=== PATIENT | male | born 1985 | race Caucasian/White ===

== ENCOUNTER → 2017-04-26 | Outpatient (CLI) | payer OTHER ==
[~2017-04-26] MED LIST: DOXY100T2 PO; ONDA8TAB13 PO; TRAM50TA2 PO
--- NOTE | 2017-04-26 17:58 | Diagnostic Imaging Report ---
INDICATION: Tailbone pain. FINDINGS: AP and lateral views of the sacrum and coccyx do not show any evidence of displaced fracture. Sacral ala appears to be intact. SI joints appear normal. IMPRESSION: Negative sacrum and coccyx. Dictated by: Dictated on workstation # [id number]
== END ==
LOC: RAD 16:51
PROVIDERS: ATTEND Family Medicine
DX: M53.3 Sacrococcygeal disorders, not elsewhere classified (principal)
CPT/HCPCS: 72220

== ENCOUNTER 2021-02-28 22:42 | Emergency (ER) | payer OTHER ==
[~2021-02-28] VITALS: Ht 66 cm; Wt 68.0 kg
[~2021-02-28 22:42] MED LIST changes: -TRAM50TA2 PO; +TRM50T PO
--- NOTE | 2021-02-28 23:40 | ED Lower Extremity ---
General Chief Complaint: Lower Extremity Stated Complaint: ROLLED ANKLE/SWELLING/PAIN Nursing Triage Note: Pt arrives via POV from home with c/o right ankle pain; states he was stepping off of a small ledge et he rolled his ankle. Swelling noted but no obvious deformity. Pt has been using ice since the incident. (MANUELCHELLE) History of Present Illness Date Seen by Provider: Feb 28, 2021 Time Seen by Provider: 23:28 Initial Comments Patient is a 35 year old male who presents to the ER with complaints of an ankle injury. Patient states he stepped off of a curb and rolled his ankle. [place] a popping sensation as it rolled. Patient states it was an inversion injury. This occurred around 1999. Patient didn't fall and was going to attempt to tough it out. When he got home and took his work boot off his ankle was swollen and continued to swell. Around 2229 patient took 600 mg of ibuprofen. Has been icing and elevating the ankle. Patient states he has had no numbness, tingling, or burning. Describes the pain as a deep achy pain. Rates it a 4/10 at rest but can get as high as 6/10 with movement. The pain is localized to the ankle and does not radiate. There is swelling around the lateral malleolus, approximately half a baseball in size. Sensation and capillary refill are intact distal to the injury. Patient states he can put a little weight on his foot, but did hop on one leg to the ER and to his ER bed. Onset: this evening Severity: mild Pain/Injury Location: right ankle Method of Injury: twisted Modifying Factors: Improves With Movement (CHELLE JACKSON) Allergies and Home Medications Allergies Coded Allergies: No Known Drug Allergies (Unverified , 03/27/16) Patient Home Medication List Home Medication List Reviewed: Yes (CHELLE JACKSON) Doxycycline Hyclate (Doxycycline Hyclate) 100 Mg Tablet, 100 MG PO BID Prescribed by: MARIPOSA BRADSHAW on 03/28/1638 Ondansetron (Ondansetron Odt) 8 Mg Tab.rapdis, 8 MG PO Q6H PRN for NAUSEA Prescribed by: MARIPOSA BRADSHAW on 03/28/1638 Tramadol HCl (Tramadol HCl) 50 Mg Tablet, 50-100 MG PO Q4H PRN for PAIN Prescribed by: MARIPOSA BRADSHAW on 03/28/16 0046 Review of Systems Constitutional: no symptoms reported EENTM: no symptoms reported Respiratory: no symptoms reported Cardiovascular: no symptoms reported Gastrointestinal: no symptoms reported Genitourinary: no symptoms reported Musculoskeletal: joint pain (Right ankle), joint swelling (Right ankle) Skin: no symptoms reported Psychiatric/Neurological: No Symptoms Reported (CHELLE JACKSON) Past Bevsdgy-Aeblgq-Zmrkmd Hx Patient Social History Tobacco Use?: No Use of E-Cig and/or Vaping dev: No Substance use?: No Alcohol Use?: No Pt feels they are or have been: No (CHELLE JACKSON) Immunizations Up To Date Tetanus Booster (TDap): More than 5yrs PED Vaccines UTD: No COVID19 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[employer] (CHELLE JACKSON) Seasonal Allergies Seasonal Allergies: No (CHELLE JACKSON) Past Medical History Currently Using CPAP: No Currently Using BIPAP: No Reproductive Disorders: No Sexually Transmitted Disease: No HIV/AIDS: No Adverse Reaction/Blood Tranf: No (CHELLE JACKSON) Family Medical History No Pertinent Family Hx (CHELLE JACKSON) Physical Exam Vital Signs Vital Signs - First Documented 02/28/21 23:20 Temp 36.8 Pulse 68 Resp 18 B/P (MAP) 136/87 (103) Pulse Ox 98 O2 Delivery Room Air (TAYLOR BALDERRAMA MD) Vital Signs Capillary Refill : Less Than 3 Seconds (CHELLE JACKSON) Height, Weight, BMI Height: 5'6" Weight: 155lbs. oz. 70.050775vf; 156.00 BMI Method:Stated General Appearance: WD/WN, no apparent distress Neck: supple, normal inspection Cardiovascular: normal peripheral pulses, no murmur Respiratory: chest non-tender, no respiratory distress, no accessory muscle use Gastrointestinal: non tender, soft Ankles: left ankle non-tender, left ankle normal inspection; right ankle limited range of motion, right ankle pain, right ankle soft tissue tenderness, right ankle swelling Neurologic/Tendon: normal sensation Neurologic/Psychiatric: alert, normal mood/affect, oriented x 3 Skin: normal color, warm/dry Lymphatic: no adenopathy (CHELLE JACKSON) Progress/Results/Core Measures Results/Orders My Orders Orders - TAYLOR BALDERRAMA MD Ankle, Right, 3 Views (02/28/21 23:33) (TAYLOR BALDERRAMA MD) Vital Signs/I&O 02/28/21 23:20 Temp 36.8 Pulse 68 Resp 18 B/P (MAP) 136/87 (103) Pulse Ox 98 O2 Delivery Room Air (TAYLOR BALDERRAMA MD) Blood Pressure Mean: 103 Progress Progress Note : Progress Note X-rays negative for fracture. Discussed results with patient. Discussed RICE and NSAIDs in the coming days for ankle pain and swelling. They understand. (CHELLE JACKSON) Departure Impression Primary Impression: Sprain and strain of ankle Disposition: HOME, SELF-CARE Condition: Stable Departure-Patient Inst. Decision time for Depature: 23:59 (CHELLE JACKSON) Referrals: FLORIDA HYTAT DO (PCP/Family) Primary Care Physician Patient Instructions: Ankle Sprain (DC) Add. Discharge Instructions: Continue to apply ice and compression to the affected ankle. Rest and elevate the ankle when possible Take 600 mg Ibuprofen, with food, every six to eight hours as needed for pain Continue applying RANDI wrap to ankle for the next 7 days. Follow up with your primary care physician if the pain or swelling do not go down in the next 10-14 days. All discharge instructions reviewed with patient and/or family. Voiced understanding. I have seen and evaluated the patient; I have performed a history and physical evaluation. 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 Will send him home with NSAIDS and RICE therapy. (TAYLOR BALDERRAMA MD) CHELLE JACKSON Feb 28, 2021 23:40 TAYLOR BALDERRAMA MD Mar 01, 2021 00:17
--- NOTE | 2021-03-01 | Diagnostic Imaging Report ---
Indication: Right ankle injury with pain and swelling. Comparison: None. Discussion: Three views of the right ankle were obtained. There is marked lateral soft tissue swelling noted. No displaced fracture identified. No dislocation. Ankle mortise is symmetric. No foreign body. Impression: 1. Right ankle soft tissue swelling without fracture. Dictated by: Dictated on workstation # [id number]
[2021-03-01 00:16] VITALS: BP 136/87
== END 2021-03-01 00:17 | disposition home or self-care (01) ==
LOC: EDUNIT# 22:42 → ER 22:46
DX: S93.401A Sprain of unspecified ligament of right ankle, initial encounter (principal); X50.1XXA Overexertion from prolonged static or awkward postures, initial encounter
CPT/HCPCS: 73610